=== PATIENT | female | born 1995 | race Caucasian/White ===

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

== ENCOUNTER 2017-04-08 18:09 | Emergency (ER) | payer OTHER ==
[2017-04-08 18:37] VITALS: BP 118/84; PULSE 84; RESP 16; TEMP 99; O2SAT 96
--- NOTE | 2017-04-08 19:15 | EDPHY ---
H & P Time Seen by Provider: 04/08/17 19:14 HPI/ROS: Chief complaint. Allergic reaction HPI. Patient is a 22-year-old female with known not allergy. She was at some friend's house and had a pasta dish that she did realize had peanuts in there. She started the did head and had some mouth tingling and swelling. This occurred about 5:30 p.m. Patient took Benadryl and her EpiPen. She still has slight shortness of breath but otherwise is feeling better. She has had similar symptoms previously when she ate peanuts. ROS Constitutional. no fever/chills, no weakness Eyes. no problems with vision ENT. Mouth swelling Cardiovascular. no chest pain Respiratory. Slight shortness of breath Abdominal. no abdominal pain, no nausea/vomiting, no diarrhea . no problems urinating MS. no calf pain/swelling, no neck/back pain, no joint pain Skin. no rash Lymph. no swollen glands Neuro. no headache, no dizziness, no difficulty walking or with speech Past Medical/Surgical History: Asthma, peanut allergy Social History: Single, nonsmoker, no alcohol Smoking Status: Never smoked Physical Exam: General Appearance: Alert pleasant well-developed female mild distress vital signs are stable Eyes: Pupils equal and round no pallor or injection. ENT, no obvious swelling. There is no stridor. She is swallowing and handling secretions. Speech is normal Respiratory: There are no retractions, lungs are clear to auscultation. Cardiovascular: Regular rate and rhythm. Gastrointestinal: Abdomen is soft and nontender, no masses, bowel sounds normal. Neurological: Awake and alert, sensory and motor exams grossly normal. Skin: Warm and dry, no rashes. Musculoskeletal: Neck is supple nontender. Extremities symmetrical, full range of motion. Psychiatric: Patient is oriented X 3, there is no agitation. Constitutional: Initial Vital Signs Temperature (C) 37.2 C 04/08/17 18:34 Heart Rate 84 04/08/17 18:34 Respiratory Rate 16 04/08/17 18:34 Blood Pressure 118/84 H 04/08/17 18:34 O2 Sat (%) 96 04/08/17 18:34 O2 Delivery Mode Room Air Allergies/Adverse Reactions: oseltamivir phosphate [From Tamiflu] Allergy (Verified 04/08/17 18:33) peanut Allergy (Verified 04/08/17 18:33) Home Medications: Medication Instructions Recorded Advair 100/50 (*) 04/08/17 Benadryl 04/08/17 Doxycycline Hyclate 04/08/17 EPINEPHrine [Epipen 0.3 MG] 0.3 mg IM ONCE #2 syr 04/08/17 Epinephrine 04/08/17 Medical Decision Making Procedures: Pepcid and prednisone orally ED Course/Re-evaluation: On re-evaluation patient is stable. No progression of her symptoms. Patient, her mom, and I discussed treatment plan including criteria for return importance of follow-up and further evaluation. They expressed understanding and agreement Differential Diagnosis: Not allergy and exposed to peanuts. Patient treated already with epinephrine and Benadryl. Supplemented with Pepcid and prednisone. No progression of allergic symptoms - Data Points Medications Given: Discontinued Medications Famotidine (Pepcid) 40 mg PO EDNOW ONE Stop: 04/08/17 19:31 Last Admin: 04/08/17 19:33 Dose: 40 mg Prednisone (Prednisone) 60 mg PO EDNOW ONE Stop: 04/08/17 19:31 Last Admin: 04/08/17 19:32 Dose: 60 mg Departure - Departure Disposition: Home, Routine, Self-Care Clinical Impression: Allergic reaction Qualifiers: Encounter type: initial encounter Qualified Code(s): T78.40XA - Allergy, unspecified, initial encounter Condition: Good Instructions: Food Allergy (ED) Additional Instructions: May use Benadryl if needed. Return for worsening symptoms. Recheck tomorrow for any continuing symptoms Prescriptions: EPINEPHrine [Epipen 0.3 MG] 0.3 mg IM ONCE #2 syr
[2017-04-08] MEDS ORDERED: predniSONE 20 MG TAB ONE (19:29)
[2017-04-08] MEDS ORDERED: FAMOTIDINE 20 MG TAB ONE (19:29)
[2017-04-08] MEDS ORDERED: predniSONE 20 MG TAB PO ONE (19:30)
[2017-04-08] MEDS ORDERED: FAMOTIDINE 20 MG TAB PO ONE (19:30)
== END 2017-04-08 20:07 | disposition home or self-care (01) ==
DX: T78.1XXA Other adverse food reactions, not elsewhere classified, initial encounter (principal); J45.909 Unspecified asthma, uncomplicated; Z91.010 Allergy to peanuts
CPT/HCPCS: J7512